=== PATIENT | male | born 1970 | race American Indian/Alaskan Native ===

== ENCOUNTER 2018-04-08 19:31 | Emergency (ER) | payer OTHER ==
[2018-04-08] MEDS ORDERED: ASPIRIN PO ONE (20:36)
[2018-04-08 21:10] LABS: Basophils # (Auto) 0.1 K/mm3 (0.0-0.1); Basophils % (Auto) 1.1 % (0.0-1.8); Eosinophils # (Auto) 0.2 K/mm3 (0.0-0.4); Eosinophils % (Auto) 2.6 % (0.0-4.3); Hematocrit 52.2 % (35.5-45.6); Hemoglobin 17.5 gm/dl (11.8-15.2); Lymphocytes # (Auto) 1.8 K/mm3 (1.2-5.4); Lymphocytes % (Auto) 19.8 % (13.4-35.0); Mean Corpuscular HGB Conc 34 % (32-34); Mean Corpuscular Hemoglobin 32 pg (28-32); Mean Corpuscular Volume 95 fl (84-94); Monocytes # (Auto) 0.7 K/mm3 (0.0-0.8); Monocytes % (Auto) 7.7 % (0.0-7.3); Platelet Count 260 K/mm3 (140-440); Red Blood Count 5.47 M/mm3 (3.65-5.03); Red Cell Distribution Width 13.6 % (13.2-15.2)
[2018-04-08 21:56] LABS: BUN/Creatinine Ratio 9; Blood Urea Nitrogen 6 mg/dL (9-20); Calcium 7.4 mg/dL (8.4-10.2); Hemolysis Index 9
[2018-04-09] MEDS ORDERED: K-DUR PO ONE (01:35)
[2018-04-09] MEDS ORDERED: ASPIRIN ONE (01:48)
--- NOTE | 2018-04-09 02:06 | XRay Report ---
FINAL REPORT EXAM: XR CHEST 1V AP HISTORY: SOB TECHNIQUE: A portable upright view the chest was obtained. FINDINGS: Heart size and mediastinum appear normal. The lungs are clear. Pleural fluid is not seen. The bones and soft tissues are well maintained. IMPRESSION: No active chest disease.
[2018-04-09] MEDS: KCL 10MEQ/100ML 10 MEQ/100 ML BAG IV SCH ×2 (02:47→04:16)
[2018-04-09] MEDS ORDERED: NACL 0.9% 250ML 250 ML ONE (02:50)
[2018-04-09] MEDS ORDERED: XANAX PO ONE (02:57)
[2018-04-09] MEDS ORDERED: NACL 0.9% 250ML 250 ML IV ONE ×2 (03:45→05:45)
--- NOTE | 2018-04-09 05:04 | Cat Scan Report ---
FINAL REPORT EXAM: CT ANGIO CHEST HISTORY: SOB, elevated dimer TECHNIQUE: A CT angiogram was performed following the intravenous injection of 150 cc of Omnipaque 350. Rotational, sagittal, and coronal MIP reconstructions were reviewed. FINDINGS: There is no evidence of pulmonary embolus, aortic dissection or vascular congestion. The heart size is normal. Pericardial fluid is not seen. Adenopathy is not identified. The lungs are clear. Pleural fluid is not seen. At the thoracic inlet the thyroid gland appears normal. In the upper abdomen there is a small hiatal hernia. There is diminished attenuation of the liver suggesting hepatic steatosis. The adrenal glands appear normal. The spleen reveals an enhancing 3.8 cm lesion along the superior margin most likely representing an incidental hemangioma. The skeletal structures reveal multilevel disc degeneration in the thoracic spine IMPRESSION: No evidence of pulmonary embolus, aortic dissection, or vascular congestion. No acute process in the chest. Hepatic steatosis. Small hiatal hernia. 3.8 cm enhancing lesion in the spleen most likely representing an incidental hemangioma.
--- NOTE | 2018-04-09 06:14 | Emergency Department Report ---
HPI - General Chief Complaint: Chest Pain Time Seen by Provider: 04/09/18 01:19 - HPI HPI: 47-year-old [place] male presents to the emergency Department after driving himself in to be seen with a complaint of having some shortness of breath and some right arm numbness that started earlier while at work. The numbness resolved and the shortness of breath improved and then the patient just felt shaky. He denies any chest pain, fever, nausea, vomiting. The patient has a history of hypertension, anxiety and bilateral lower extremity lymphedema. He denies being a tobacco smoker or any illicit drug use. Patient takes BuSpar for his anxiety, losartan 100 for his hypertension and torsemide for the lymphedema along with 20 mEq twice daily of K-Dur to supplement his potassium. He did not take anything specifically regarding his current or previous symptoms. No recent travel or sick contacts at home. His primary care physician is through [facility] ED Past Medical Hx - Past Medical History Hx Hypertension: Yes Hx Psychiatric Treatment: Yes (Anxiety) Additional medical history: Morbid obesity, Lymphadema (Bilateral legs) - Surgical History Past Surgical History?: No - Social History Smoking Status: Never Smoker Substance Use Type: None - Medications Home Medications: Home Medications Medication Instructions Recorded Confirmed Last Taken Type Buspar 5 mg PO DAILY PRN 04/08/18 04/08/18 Unknown History K-Dur 20 meq PO BID 04/08/18 04/08/18 Unknown History Losartan 100 mg PO DAILY 04/08/18 04/08/18 Unknown History Torsemide 20 mg PO DAILY 04/08/18 04/08/18 Unknown History Albuterol Sulfate [Ventolin Hfa] 2 puff INHALATION Q4H PRN #1 04/09/18 Unknown Rx [email or web address] ED Review of Systems ROS: Stated complaint: CHEST PAIN Other details as noted in HPI Comment: All other systems reviewed and negative Constitutional: denies: chills, fever Eyes: denies: eye pain, eye discharge, vision change ENT: denies: ear pain, throat pain Respiratory: shortness of breath. denies: cough Cardiovascular: denies: chest pain, syncope Gastrointestinal: denies: abdominal pain, nausea, diarrhea Genitourinary: denies: urgency, dysuria Musculoskeletal: denies: back pain, joint swelling, arthralgia Skin: denies: rash, lesions Neurological: denies: headache, weakness, paresthesias Psychiatric: anxiety Physical Exam - Physical Exam Vital Signs: Vital Signs 04/08/18 04/09/18 20:21 01:50 Temperature 98.6 F 98.6 F Pulse Rate 110 H 85 Respiratory 20 12 Rate Blood Pressure 156/102 Blood Pressure 149/94 [Left] O2 Sat by Pulse 100 98 Oximetry Physical Exam: GENERAL: The patient is well-developed well-nourished. HENT: Normocephalic. Atraumatic. Patient has moist mucous membranes. EYES: Extraocular motions are intact. Pupils equal reactive to light bilaterally. NECK: Supple. Trachea is midline. CHEST/LUNGS: Clear to auscultation. There is no respiratory distress noted. HEART/CARDIOVASCULAR: Regular. There is no tachycardia. There is no murmur. ABDOMEN: Abdomen is soft, nontender. Patient has normal bowel sounds. Obese habitus. SKIN: There is bilateral lower extremity nonpitting swelling consistent with his lymphedema. NEURO: The patient is awake, alert, and oriented. The patient is cooperative. The patient has no focal neurologic deficits. The patient has normal speech. MUSCULOSKELETAL: There is no tenderness or deformity. There is no limitation range of motion. There is no evidence of acute injury. ED Course Vital Signs 04/08/18 04/09/18 20:21 01:50 Temperature 98.6 F 98.6 F Pulse Rate 110 H 85 Respiratory 20 12 Rate Blood Pressure 156/102 Blood Pressure 149/94 [Left] O2 Sat by Pulse 100 98 Oximetry - Consultations Consultation #1: I spoke with Dr. Baugh at the [facility] transfer line regarding the patient's hypokalemia and my plan for discharge home if we can get close follow-up. The patient has been set up for an appointment this coming Wednesday with Dr. Perez. The recommendation has been made that the patient double his potassium supplement up to 40 mEq twice daily 3 days. 04/09/18 06:16 ED Medical Decision Making - Lab Data Result diagrams: 04/08/18 20:47 04/08/18 20:47 - EKG Data -: EKG Interpreted by Me EKG shows normal: sinus rhythm, axis, intervals, QRS complexes, ST-T waves Rate: tachycardia - EKG Data When compared to previous EKG there are: previous EKG unavailable Interpretation: normal EKG - Radiology Data Radiology results: report reviewed, image reviewed interpreted by me: Chest x-ray does not show any acute process. There are no pleural effusions, obvious pneumonia and there is no pneumothorax. EXAM: CT ANGIO CHEST HISTORY: SOB, elevated dimer TECHNIQUE: A CT angiogram was performed following the intravenous injection of 150 cc of Omnipaque 350. Rotational, sagittal, and coronal MIP reconstructions were reviewed. FINDINGS: There is no evidence of pulmonary embolus, aortic dissection or vascular congestion. The heart size is normal. Pericardial fluid is not seen. Adenopathy is not identified. The lungs are clear. Pleural fluid is not seen. At the thoracic inlet the thyroid gland appears normal. In the upper abdomen there is a small hiatal hernia. There is diminished attenuation of the liver suggesting hepatic steatosis. The adrenal glands appear normal. The spleen reveals an enhancing 3.8 cm lesion along the superior margin most likely representing an incidental hemangioma. The skeletal structures reveal multilevel disc degeneration in the thoracic spine IMPRESSION: No evidence of pulmonary embolus, aortic dissection, or vascular congestion. No acute process in the chest. Hepatic steatosis. Small hiatal hernia. 3.8 cm enhancing lesion in the spleen most likely representing an incidental hemangioma. Transcribed By: RB Dictated By: OFELIA MORATAYA MD Electronically Authenticated By: OFELIA MORATAYA MD Signed Date/Time: 04/09/18 0500 - Medical Decision Making Patient came in with a complaint of some shortness of breath, right arm numbness , and then a general shaky feeling. He does not appear in any respiratory or any acute distress. Heart and lung sounds are normal and auscultation. EKG does not show any ST elevation NM or dysrhythmia. Chest x-ray does not show any acute process. Patient has had negative troponins 2 and the majority of his labs were unremarkable but he did have a slightly elevated d-dimer. Also the patient's potassium level was 2.7. This is most likely secondary to his torsemide but despite potassium supplementation. This might be the reason for the patient shaky feeling. Regarding the elevated d-dimer, the patient had a CT angiography of the chest that did not show any signs of any vomiting and wasn 't, dissection or any other acute process. He was given both oral and IV potassium supplement in the emergency department. I spoke with the [facility] transfer line and the patient has been set up for an appointment on Wednesday with a primary care physician and he will increase the K-Dur at home. He will return to the ER with any worsening of symptoms or any acute distress. Dictation software was used for certain portions of this chart and therefore there may be some dictation errors within these notes. - Differential Diagnosis PE, Asthma, Hypokalemia, dysrythmia Critical Care Time: No Critical care attestation.: If time is entered above; I have spent that time in minutes in the direct care of this critically ill patient, excluding procedure time. ED Disposition Clinical Impression: Hypokalemia Dyspnea Qualifiers: Dyspnea type: shortness of breath Qualified Code(s): R06.02 - Shortness of breath Disposition: DC-01 TO HOME OR SELFCARE Is pt being admited?: No Condition: Stable Instructions: Hypokalemia (ED), Dyspnea (ED) Additional Instructions: [facility] has scheduled an appointment for you on Wednesday with Dr. Perez at 8:45 AM. Please make sure to go to this appointment. For the next 3 days, increase your potassium supplement, the K-Dur, up to 40 mEq twice daily. Return to the emergency Department with any worsening of your symptoms or any acute distress. Prescriptions: Albuterol Sulfate [Ventolin Hfa] 2 puff INHALATION Q4H PRN #1 [email or web address] PRN Reason: Shortness Of Breath Referrals: Dr Chris [Other] - 04/11/18 8:45 am Time of Disposition: :
[2018-04-09 06:40] VITALS: BP 149/89
== END 2018-04-09 06:56 | disposition home or self-care (01) ==
LOC: ED 19:31
DX: E87.6 Hypokalemia (principal); R06.02 Shortness of breath; I10 Essential (primary) hypertension
CPT/HCPCS: 36415; 71045; 71275; 80048; 84484; 85025; 85379; 93005; 93010; 96365; 96366; 99285; J3480; J7050; Q9967

== ENCOUNTER 2018-05-02 10:49 | Emergency (ER) | payer OTHER ==
[2018-05-02] MEDS ORDERED: PEPCID IV ONE (11:07)
[2018-05-02] MEDS ORDERED: BENADRYL IV ONE (11:07)
[2018-05-02] MEDS ORDERED: NACL 0.9% 500 ML 500 ML IV ONE (11:08)
[2018-05-02] MEDS ORDERED: ATIVAN IV ONE (11:28)
[2018-05-02 12:00] LABS: BUN/Creatinine Ratio 9; Blood Urea Nitrogen 8 mg/dL (9-20); Calcium 7.1 mg/dL (8.4-10.2); Hemolysis Index 28
[2018-05-02 12:01] LABS: Basophils % (Auto) 0.5 % (0.0-1.8); Eosinophils # (Auto) 0.1 K/mm3 (0.0-0.4); Eosinophils % (Auto) 0.8 % (0.0-4.3); Hematocrit 52.1 % (35.5-45.6); Hemoglobin 17.8 gm/dl (11.8-15.2); Lymphocytes # (Auto) 1.6 K/mm3 (1.2-5.4); Lymphocytes % (Auto) 16.4 % (13.4-35.0); Mean Corpuscular HGB Conc 34 % (32-34); Mean Corpuscular Hemoglobin 33 pg (28-32); Mean Corpuscular Volume 96 fl (84-94); Monocytes % (Auto) 10.5 % (0.0-7.3); Platelet Count 264 K/mm3 (140-440); Red Blood Count 5.41 M/mm3 (3.65-5.03); Red Cell Distribution Width 13.2 % (13.2-15.2)
--- NOTE | 2018-05-02 12:18 | Emergency Department Report ---
ED Allergic Reaction HPI - General Chief complaint: Allergic Reaction Stated complaint: POSSIBLE STROKE Time Seen by Provider: 05/02/18 11:06 Source: patient Mode of arrival: Stretcher Limitations: No Limitations - History of Present Illness Initial Comments: At 4 PM, patient had shrimp fried rice from a new location. Later that day, he developed bilateral head and arm tingling. He woke up at 2:30 AM and he was having palpitations, difficulty breathing, and tingling. Patient went to [facility] who diagnosed him with anxiety, palpitations, and MSG reaction. They gave him Benadryl/Atarax and discharged him. Patient did not feel improved. So , he called EMS to bring him to [facility]. - Related Data Home Medications Medication Instructions Recorded Confirmed Last Taken Buspar 5 mg PO DAILY PRN 04/08/18 04/08/18 Unknown K-Dur 20 meq PO BID 04/08/18 04/08/18 Unknown Losartan 100 mg PO DAILY 04/08/18 04/08/18 Unknown Torsemide 20 mg PO DAILY 04/08/18 04/08/18 Unknown Previous Rx's Medication Instructions Recorded Last Taken Type Albuterol Sulfate [Ventolin Hfa] 2 puff INHALATION Q4H PRN #1 04/09/18 Unknown Rx [email or web address] Allergies Allergy/AdvReac Type Severity Reaction Status Date / Time No Known Allergies Allergy Verified 04/09/18 01:20 ED Review of Systems ROS: Stated complaint: POSSIBLE STROKE Other details as noted in HPI Comment: All other systems reviewed and negative Constitutional: malaise, weakness ENT: other (dry mouth) Neurological: paresthesias, other (speech difficulty) ED Past Medical Hx - Past Medical History Hx Hypertension: Yes Hx Psychiatric Treatment: Yes (Anxiety) Additional medical history: Morbid obesity, Lymphadema (Bilateral legs) - Social History Smoking Status: Never Smoker Substance Use Type: None - Medications Home Medications: Home Medications Medication Instructions Recorded Confirmed Last Taken Type Buspar 5 mg PO DAILY PRN 04/08/18 04/08/18 Unknown History K-Dur 20 meq PO BID 04/08/18 04/08/18 Unknown History Losartan 100 mg PO DAILY 04/08/18 04/08/18 Unknown History Torsemide 20 mg PO DAILY 04/08/18 04/08/18 Unknown History Albuterol Sulfate [Ventolin Hfa] 2 puff INHALATION Q4H PRN #1 04/09/18 Unknown Rx [email or web address] ED Physical Exam - General Limitations: No Limitations General appearance: alert, in no apparent distress, anxious, other (diaphoretic) - Head Head exam: Present: atraumatic, normocephalic - Eye Eye exam: Present: normal appearance - ENT ENT exam: Present: mucous membranes dry, other (tongue appears swollen) - Neck Neck exam: Present: normal inspection - Respiratory Respiratory exam: Present: normal lung sounds bilaterally. Absent: respiratory distress - Cardiovascular Cardiovascular Exam: Present: regular rate, normal rhythm. Absent: systolic murmur, diastolic murmur, rubs, gallop - GI/Abdominal GI/Abdominal exam: Present: soft, normal bowel sounds. Absent: tenderness - Rectal Rectal exam: Present: deferred - Extremities Exam Extremities exam: Present: normal inspection - Back Exam Back exam: Present: normal inspection - Neurological Exam Neurological exam: Present: alert, oriented X3, CN II-XII intact, motor sensory deficit - Psychiatric Psychiatric exam: Present: normal affect, normal mood - Skin Skin exam: Present: warm, dry, intact, normal color. Absent: rash ED Course Vital Signs 05/02/18 05/02/18 05/02/18 11:39 12:10 13:06 Temperature 98.8 F Pulse Rate 74 84 Respiratory 16 16 Rate Blood Pressure 140/96 Blood Pressure 164/107 [Left] O2 Sat by Pulse 96 96 Oximetry ED Medical Decision Making - Lab Data Result diagrams: 05/02/18 11:05 05/02/18 11:05 - EKG Data -: EKG Interpreted by Me EKG shows normal: sinus rhythm, axis, intervals, QRS complexes, ST-T waves Rate: normal - EKG Data Interpretation: no acute changes - Radiology Data Radiology results: report reviewed - Medical Decision Making 47-year-old male with past medical history of hypertension who presents to the ER with her seizures and tongue swelling. Vital signs are stable. No focal neuro deficits on presentation. EMS had originally called a stroke alert. Given that the patient's NIH stroke scale is 0, I discontinued the stroke alert. Patient's presentation appears more consistent with allergic reaction with possible angioedema. I talked with [facility], who said that he had been evaluated there for an allergic reaction and only given Benadryl/Atarax. In the ER, patient received IV fluids, site Medrol, Pepcid, Benadryl. He received 1 mg Ativan for his anxiety. On reevaluation, patient felt much improved. When he arrived here, patient had difficulty swallowing water. On reevaluation , he had no problem with water or eating. Patient will be discharged with instructions to no longer eat shrimp until he has had allergy testing. He is hypertensive in the ER, but asymptomatic. Patient says that he has not been taking his blood pressure medication the way that he should. CT head was negative. EKG is nonischemic. Troponin is negative times one. I told the patient to start consistently taking his blood pressure medication. He'll follow-up with his family doctor for reevaluation. - Differential Diagnosis CVA, angioedema, allergic rxn, anxiety, sepsis, arrhythmia, ACS Critical care attestation.: If time is entered above; I have spent that time in minutes in the direct care of this critically ill patient, excluding procedure time. ED Disposition Clinical Impression: Allergic reaction, Hypertension Disposition: DC-01 TO HOME OR SELFCARE Is pt being admited?: No Does the pt Need Aspirin: No Condition: Stable Instructions: Food Allergy (ED), Hypertension (ED) Additional Instructions: Please do not eat shrimp again until you have been tested for food allergies. Follow up with your family doctor in 2-3 days for recheck of your blood pressure and allergies. Take your blood pressure meds as they have been prescribed, including your torsemide. Referrals: PRIMARY CARE, [Primary Care Provider] - 3-5 Days
--- NOTE | 2018-05-02 12:21 | Cat Scan Report ---
CT scan of the without IV contrast: History: Speech difficulty. Findings: Ventricles are normal in size and midline in location. No evidence of acute ischemia, hemorrhage or mass. There no extra-axial fluid collection. Normal brainstem and cerebellum. Normal sinuses and mastoids. Impression: No acute intracranial abnormality..
[2018-05-02 13:07] VITALS: BP 164/107
== END 2018-05-02 14:05 | disposition home or self-care (01) ==
LOC: ED 10:49
DX: T78.1XXA Other adverse food reactions, not elsewhere classified, initial encounter (principal); I10 Essential (primary) hypertension; F41.9 Anxiety disorder, unspecified; E66.01 Morbid (severe) obesity due to excess calories; Z68.33 Body mass index [BMI] 33.0-33.9, adult; X58.XXXA Exposure to other specified factors, initial encounter
CPT/HCPCS: 36415; 70450; 80048; 83735; 84100; 84484; 85025; 93005; 93010; 96374; 96375; 99284; J1200; J2060; J2930; J7040

== ENCOUNTER 2018-05-02 19:06 | Emergency (ER) | payer OTHER | END 2018-05-02 19:28 | disposition left against medical advice (07) | LOC: ED 19:06 | DX: I10 Essential (primary) hypertension (principal); Z53.21 Procedure and treatment not carried out due to patient leaving prior to being seen by health care provider ==